=== PATIENT | male | born 1970 | race Caucasian/White ===

== ENCOUNTER 2016-12-06 07:11 | Day surgery (SDC) | payer OTHER ==
[~2016-12-06] VITALS: Ht 175.3 cm; Wt 78.5 kg
[~2016-12-06 07:11] MED LIST: ASA400 PO; CIPRO500 MG PO; COLACE100 MG PO; LAC PO; METOPROLOL TART25 M1 PO; NOR10T PO; PRE20 PO; PRI20 PO
[2016-12-06 07:50] VITALS: BP 151/88
[2016-12-06 10:14] VITALS: BP 156/98
== END 2016-12-06 09:45 | disposition home or self-care (01) ==
LOC: DS 07:11 → OR 09:30 → GI 09:30 → DS 09:45
PROVIDERS: Internal Medicine
PROC: 0DB68ZX Excision of Stomach, Via Natural or Artificial Opening Endoscopic, Diagnostic (ICD-10-PCS; principal; 2016-12-06 09:30)
PROC: 0DB58ZX Excision of Esophagus, Via Natural or Artificial Opening Endoscopic, Diagnostic (ICD-10-PCS; 2016-12-06 09:30)
DX: K20.8 Other esophagitis (principal); K29.60 Other gastritis without bleeding; B96.81 Helicobacter pylori [H. pylori] as the cause of diseases classified elsewhere; K21.9 Gastro-esophageal reflux disease without esophagitis; J30.9 Allergic rhinitis, unspecified; Z68.28 Body mass index [BMI] 28.0-28.9, adult; Z80.0 Family history of malignant neoplasm of digestive organs
CPT/HCPCS: 43235; J1200; J1610; J2250; J2310; J3010; J3490